=== PATIENT | female | born 1980 | race Caucasian/White ===

== ENCOUNTER 2019-11-17 10:44 | Outpatient (CLI) | payer OTHER, SELFPAY ==
--- NOTE | ~2019-11-17 | US_ITS ---
EXAMINATION: US OB <= 14 weeks fetus DATE: 11/17/2019 11:49 INDICATION: Threatened during late first trimester . TECHNIQUE: Real-time pelvic ultrasound utilizing transabdominal probe was performed. The saige elias radiologist was not present for the study. COMPARISON: 10/30/2019 and 10/25/2019 FINDINGS: The uterus measures 15.8 x 10.0 x 12.4 cm. There is an intrauterine gestational sac.There is a singl e fetus within the gestational sac in breech position. The crown rump length measures 6.4 cm, which i s concordant with previous estimated gestational age of 9 weeks and 5 days based upon earliest ultras ound performed at this institution on 10/25/2019. heart motion is identified measuring 165 beats per minute (bpm) by M-mode Doppler. Again seen is a diffusely hypoechoic fibroid in the posterior ut erine wall measuring 7.0 x 7.2 x 6.6 cm. No definitive subchorionic hematoma identified in the curren t study. The right ovary measures 2.2 x 1.7 x 1.6 cm. The left ovary measures 3.4 x 2.6 x 3.1 cm. Mass or flui d is identified at both ovaries on color Doppler. There is no free fluid in the pelvis. IMPRESSION: 1. Single living fetus with heart rate of 165 bpm. 2. Jillian rump length of 6.4 cm which is concordant with previously estimated gestational age by ultraso und of 9 weeks 5 day(s) with ultrasound estimated date of delivery (BIB) of 05/29/2020. 3. 7.2 cm uterine fibroid. Reviewed, dictated and finalized at location A. CE SERVICES MANAGER IMPRESSION: 1. Single living fetus with heart rate of 165 bpm. 2. Jillian rump length of 6.4 cm which is concordant with previously estimated gest ational age by ultrasound of 9 weeks 5 day(s) with ultrasound estimated date of delivery (BIB) of 05/29/2020. 3. 7.2 cm uterine fibroid.
== END 2019-11-17 10:45 | disposition home or self-care (01) ==
PROVIDERS: Visit Provider Student in an Organized Health Care Education/Training Program
DX: O20.0 Threatened abortion (principal); Z3A.00 Weeks of gestation of pregnancy not specified; D25.9 Leiomyoma of uterus, unspecified
CPT/HCPCS: 76801

== ENCOUNTER 2020-04-02 09:18 | Observation (INO) | payer OTHER, SELFPAY ==
[2020-04-02] VITALS (13 sets, daily range): BP systolic 118–133; BP diastolic 72–82; PULSE 88–98; BMI 37.0
[2020-04-02 10:18] LABS: Add Urine Microscopic? YES; Appearance Urine Clear (Clear); Bacteria Urine 2+ /hpf; Bilirubin Urine Negative (Negative); Blood Urine 1+ (Negative); Color Urine Yellow (Yellow); Glucose Urine UA Negative (Negative); Ketones Urine Negative (Negative); Leukocyte Esterase Ur Negative LEU/UL (NEGATIVE); Mucus Urine Rare /lpf; Nitrate Urine Negative (Negative); Protein Urine Negative (Negative); RBC Urine 0-2 /hpf (0-2); Specific Grav Ur 1.012 (1.001-1.035); Squamous Epithelial Cell Urine Occasional /hpf (Few); Urobilinogen Urine Negative mg/dL (<2.0)
[2020-04-02] MEDS: NIFEdipine 10 MG CAPSULE PO (11:40)
[2020-04-02] MEDS: TERBUTALINE SULFATE 1 MG/ML VIAL 0.25 MG SUB-Q (11:40)
== END 2020-04-02 14:10 | disposition home or self-care (01) ==
PROVIDERS: Admitting Provider Student in an Organized Health Care Education/Training Program; Visit Provider Student in an Organized Health Care Education/Training Program
DX: O60.00 Preterm labor without delivery, unspecified trimester (principal); Z3A.00 Weeks of gestation of pregnancy not specified
CPT/HCPCS: 81001; 87086; 96372; A9270; G0378; G0379; J3105

== ENCOUNTER 2020-05-05 13:39 | Observation (INO) | payer OTHER, SELFPAY ==
[2020-05-05 14:10] VITALS: BMI 37.9
--- NOTE | 2020-05-05 14:10 | OBADM ---
This patient, Ana Main, admitted to the OB room Labor/Delivery/Recovery 120 at 1339 for observation for contractions. Patient/family oriented to hospital policies and general routines including ID bracelet, bed and alarms, visiting hours, pain management, procedures, bathroom and other care routines, personal items, smoking policy, room service/diet, and visiting hours. Patient/Family are encouraged to report perceived risks to care and to ask questions if they do not understand what they are told or what they should do.
[2020-05-05 14:31] VITALS: BP 128/82; PULSE 96
[2020-05-05 15:01] VITALS: BP 122/67; PULSE 96
[2020-05-05 15:31] VITALS: BP 129/84; PULSE 88
[2020-05-05 15:32] LABS: Add Urine Microscopic? NO; Appearance Urine Clear (Clear); Bilirubin Urine Negative (Negative); Blood Urine Negative (Negative); Color Urine Yellow (Yellow); Glucose Urine UA Negative (Negative); Ketones Urine Negative (Negative); Leukocyte Esterase Ur Negative LEU/UL (Negative); Nitrate Urine Negative (Negative); Protein Urine Negative (Negative); Specific Grav Ur 1.015 (1.001-1.035); Urobilinogen Urine Negative mg/dL (<2.0)
[2020-05-05 16:00] VITALS: TEMP 36.6
[2020-05-05 16:01] VITALS: BP 123/85; PULSE 84
--- NOTE | 2020-05-09 13:01 | P.PNOB_ITS ---
OB - Triage/Final Diagnosis Evaluation Laboratory results: Laboratory Tests 05/05/20 15:17 Urine Color Yellow Urine Appearance Clear Urine pH 6.0 Ur Specific [place] 1.015 Urine Protein Negative Urine Glucose (UA) Negative Urine Ketones Negative Ur Blood (Man) Negative Urine Nitrate Negative Urine Bilirubin Negative Urine Urobilinogen Negative Leukocyte Esterase Rfl Negative Final Diagnosis (1) False labor: Code(s): O47.9 - False labor, unspecified Status: Acute
== END 2020-05-05 16:30 | disposition home or self-care (01) ==
PROVIDERS: Admitting Provider Obstetrics & Gynecology; Visit Provider Obstetrics & Gynecology
DX: O47.1 False labor at or after 37 completed weeks of gestation (principal); Z3A.37 37 weeks gestation of pregnancy
CPT/HCPCS: 81003; G0378; G0379

== ENCOUNTER 2020-05-08 08:36 | Observation (INO) | payer OTHER, SELFPAY ==
--- NOTE | 2020-05-08 08:36 | OBADM ---
This patient, Ana Main, admitted to the OB room OB Post 117 for observation. Patient/family oriented to hospital policies and general routines including ID bracelet, bed and alarms, visiting hours, pain management, procedures, bathroom and other care routines, personal items, smoking policy, room service/diet, and visiting hours. Patient/Family are encouraged to report perceived risks to care and to ask questions if they do not understand what they are told or what they should do.
[2020-05-08 09:00] VITALS: TEMP 36.7; BMI 37.9
[2020-05-08 09:15] VITALS: BP 127/84; PULSE 89
[2020-05-08 09:30] VITALS: BP 121/89; PULSE 100
[2020-05-08 09:45] VITALS: BP 130/87; PULSE 100
[2020-05-08] MEDS: DEXTROSE 5%/LACTATED RINGERS 1,000 ML 999 ML IV CONT (09:57)
[2020-05-08] MEDS: ONDANSETRON INJ 4 MG/2 ML VIAL IV PUSH (09:57)
[2020-05-08 10:00] VITALS: BP 127/82; PULSE 83
[2020-05-08] MEDS: LOPERAMIDE HCL 2 MG CAPSULE 4 MG PO (10:20)
--- NOTE | 2020-05-08 12:08 | PM.OBPNVD ---
OB - PN: Subj Subjective Date/time seen: 05/08/20 12:08 Called earlier by RN and notified of patient's arrival. Pt seen at bedside. Reported worsening of nausea yesterday and diarrhea overnight. Has experienced 11 episodes of watery stool this AM. Denies any vomiting, however, unable to tolerate much PO. States that she began to feel weak and thought she was becoming dehydrated. Reports cessation of contractions. Denies any vaginal bleeding or leakage of fluid. Reports good movement. On L&D, patient has received Zofran, Immodium, and IV hydration. Reports improvement of symptoms. Has tolerated small amount of PO fluid intake as well as crackers on L&D. Will continue to monitor for a little while longer. As long as symptoms do not worsen, patient will likely be d/c'd home. Will send Rx for Zofran to pharmacy. OB - PN A/P Time Spent With Patient Time: Total time spent is greater than 50% in coordination of care (as documented) at patient's floor/unit and/or counseling patient:
--- NOTE | 2020-05-08 12:17 | PC.NURSE ---
Called Dr. Diaz with pt status. Informed that pt is requesting to go home. Pt was able to eat crackers with minimal nausea. May D/C home.
[2020-05-08] MEDS: FAMOTIDINE 20 MG/2 ML VIAL IV PUSH (12:28)
== END 2020-05-08 12:40 | disposition home or self-care (01) ==
PROVIDERS: Admitting Provider Student in an Organized Health Care Education/Training Program; Visit Provider Student in an Organized Health Care Education/Training Program
DX: O21.9 Vomiting of pregnancy, unspecified (principal); Z3A.00 Weeks of gestation of pregnancy not specified
CPT/HCPCS: 96374; 96375; A9270; G0378; G0379; J2405; J7121

== ENCOUNTER 2020-05-15 12:22 | Outpatient (RCR) | payer OTHER, SELFPAY ==
[2020-04-26 11:10] VITALS: BP 118/80; PULSE 98
[2020-04-26 12:08] LABS: Hematocrit 36.5 % (37.0-47.0); Hemoglobin 11.9 g/dL (12.0-15.0); Mean Corpuscular HGB Conc 32.6 g/dl (32-36); Mean Corpuscular Hemoglobin 28.4 pg (26-34); Mean Corpuscular Volume 87.1 fl (80-100); Mean Platelet Volume 10.9 fl (7.4-10.4); Platelet Count Result 311 k/mm3 (150-375); Red Blood Count 4.19 M/mm3 (4.2-5.4); White Blood Count 14.6 K/mm3 (4.5-10.0)
[2020-04-26 13:00] LABS: HIV 1/2 Ab P24 Ag Result Negative (Negative)
[2020-04-27 06:57] LABS: Rapid Plasma Reagin Non-Reactive (NonReactive)
[2020-04-30 11:25] VITALS: BP 118/80; PULSE 98
[2020-05-03 12:46] VITALS: BP 130/85; PULSE 100
[2020-05-11 13:27] VITALS: BP 127/80; PULSE 97
--- NOTE | 2020-05-11 13:55 | PC.NURSE ---
BPP 05/19/
--- NOTE | ~2020-05-15 | US_ITS ---
US OB limited w BPP DATE: 04/26/2020 11:54 INDICATION: AMA TECHNIQUE: Real time imaging, color flow imaging, doppler analysis COMPARISON: 11/17/2019 obstetrical ultrasound FINDINGS: Live arevalo intrauterine gestation, fetus in longitudinal lie, vertex presentation. The placenta is posterofundal. Amniotic fluid index measures 17.3 cm. (5th percentile: 7.7 cm; 95th percentile: 24.9 cm). BIOPHYSICAL PROFILE reported by echocardiograph technician: breathin out of 2 movement: 2 out of 2 tone: 2 out of 2 Amniotic fluid pocket: 2 out of 2 Total score: 8 out of 8 IMPRESSION: Normal biophysical profile score of 8 out of 8 Reviewed, dictated and finalized at Location A. Reviewed, dictated and finalized at location A.
--- NOTE | ~2020-05-15 | US_ITS ---
EXAMINATION: US OB limited w BPP DATE: 05/11/2020 13:53 INDICATION: Advanced maternal age, third trimester TECHNIQUE: Real-time pelvic ultrasound was performed. The interpreting radiologist was not present fo r the study. COMPARISON: 04/26/2020 FINDINGS: There is a single living fetus in vertex presentation. The placenta is posterior. heart rate is 128 beats per minute (bpm). The amniotic fluid index is 18.6 cm which is normal. Biophysical profile performed by the technologist: breathing (30 sec sustained breathing in 30 minutes): 2 out of 2 movement (3 gross body movements in 30 minutes): 2 out of 2 tone (one episode of olovqhg-hsnqjomur-hifvsec limb movement): 2 out of 2 Amniotic fluid pocket (2 cm): 2 out of 2 Total score: 8 out of 8 IMPRESSION: 1. Single living fetus in vertex presentation. 2. Biophysical profile 8 out of 8. 3. Normal amniotic fluid index. Reviewed, dictated and finalized at location B.
[2020-05-15 12:47] VITALS: BP 137/84; PULSE 92
== END 2020-05-21 07:40 | disposition home or self-care (01) ==
LOC: ANHOBOP 12:22
PROVIDERS: Visit Provider Student in an Organized Health Care Education/Training Program
DX: O09.513 Supervision of elderly primigravida, third trimester (principal); Z11.4 Encounter for screening for human immunodeficiency virus [HIV]; Z3A.36 36 weeks gestation of pregnancy; Z3A.37 37 weeks gestation of pregnancy; Z3A.38 38 weeks gestation of pregnancy
CPT/HCPCS: 36415; 59025; 76815; 76819; 85027; 86592; 86703; G0432

== ENCOUNTER 2020-05-16 11:50 | Outpatient (CLI) | payer OTHER, SELFPAY ==
[2020-05-16 12:15] LABS: Hematocrit 36.1 % (37.0-47.0); Hemoglobin 11.9 g/dL (12.0-15.0); Mean Corpuscular Hemoglobin 28.5 pg (26-34); Mean Corpuscular Volume 86.4 fl (80-100); Mean Platelet Volume 11.3 fl (7.4-10.4); Platelet Count Result 306 k/mm3 (150-375); Red Blood Count 4.18 M/mm3 (4.2-5.4); Red Cell Distribution Width 17.3 % (11.5-14.5); White Blood Count 11.5 K/mm3 (4.5-10.0)
[2020-05-16 17:46] LABS: Alanine Aminotransferase 11 U/L (4-35); Alkaline Phosphatase 222 U/L (38-126); Anion Gap 9.6 mmol/L (7-16); Aspartate Amino Transferase 20 U/L (14-36); Bilirubin,Total 0.2 mg/dL (0.2-1.3); Blood Urea Nitrogen 10 mg/dL (7-17); Calcium 10.1 mg/dL (8.4-10.2); Carbon Dioxide 20 mmol/L (22-30); Chloride 107 mmol/L (98-107); Estimated Glomerular Filt Rate > 60; Glucose 234 mg/dL (65-105); Potassium 4.6 mmol/L (3.4-5.0); Sodium 132 mmol/L (137-145)
[2020-05-17 10:20] LABS: Rapid Plasma Reagin Non-Reactive (NonReactive)
[2020-05-22 15:41] LABS: Chenodeoxycholic Acid <0.5 umol/L (< OR = 3.9); Cholic Acid 0.7 umol/L (< OR = 2.8); Deoxycholic Acid 1.5 umol/L (< OR = 2.3); Total Bile Acids 2.2 umol/L (< OR = 8.3)
== END 2020-05-16 11:51 | disposition home or self-care (01) ==
PROVIDERS: Visit Provider Student in an Organized Health Care Education/Training Program
DX: Z34.93 Encounter for supervision of normal pregnancy, unspecified, third trimester (principal); Z3A.00 Weeks of gestation of pregnancy not specified
CPT/HCPCS: 36415; 80053; 82542; 85027; 86592; 86850; 86900; 86901

== ENCOUNTER 2020-05-17 05:20 | Inpatient (IN) | payer OTHER, SELFPAY ==
--- NOTE | 2020-05-15 13:20 | PC.NURSE ---
VERIFIED WITH OR SCHEDULE AND PATIENT--C/S ON 05/17/20 AT 0730 PATIENT GIVEN REQUISITION FOR PRE-OP LAB DRAW ON 05/16/20
[2020-05-17] VITALS (62 sets, daily range): BP systolic 95–131; BP diastolic 62–85; PULSE 64–114; RESP 11–16; TEMP 36.1–37.4; O2SAT 95–100; BMI 38.4
[2020-05-17] MEDS: LACTATED RINGERS 1,000 ML 999 ML IV CONT (06:16)
--- NOTE | 2020-05-17 06:43 | WPDANESEPPF ---
Anes - Initial Pre Proc Eval Procedure: Operation Date: 05/17/20 07:30 Proposed Procedures p Primary Section - Vida Diaz MD Date/Time: 05/17/20 06:43 Surgeon: Vida Diaz MD Pre Op Diagnosis: section Patient Data Age: 40 Gender: F Height: Weight: Last Vital Signs Pulse 114 H 05/17/20 05:46 BP 130/82 05/17/20 05:46 Pulse Ox 99 05/17/20 05:46 Allergies Allergy/AdvReac Type Severity Reaction Status Date / Time No Known Allergies Allergy Verified 05/15/20 11:39 Home Medications Medication Instructions Recorded Confirmed Type vit 123-iron 28 mg-folic 1 cap PO DAILY 10/20/19 05/05/20 History acid 800 [id number] 235 mg capsule acetaminophen [Tylenol Extra 1,000 mg PO Q6H PRN 2 Days #1 05/05/20 Rx Strength] tablet Patient hx anesthesia problems: none Family hx anesthesia problems: none PMFSH Past Medical History Medical History False labor Miscarriage x3 2008, 2002, 1996 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rent Cerebrovascular accident Father Diabetes mellitus Acute myocardial infarction Other Breast cancer Social History Social History Smoking status: Never smoker Substance use: never Gender identity (if verbalized by the patient): Female Spiritual care concerns: No Anes - Eval Final PreProcedure Day of Procedure 05/17/20 06:43 Patient weight: obese Heart: regular rate and rhythm Lungs: clear to auscultation Airway: Mallampati scale class II Neurological: alert and oriented Last oral intake: >/= 8 hours ASA classification: II Emergent: no Anesthetic plan: proceed Anesthesia type and monitoring: regional spinal and standard monitoring Informed Consent: The patient's anesthetic plan and its attendant risks and benefits were discussed with the patient/family/POA. Questions were solicited and answers provided to the satisfaction of the patient/family/POA.
--- NOTE | 2020-05-17 06:47 | PM.IMHP ---
H&P: HPI History of Present Illness Date/Time: 05/17/20 06:47 Chief complaint: section Narrative: Ana Main is a 40 year old female LMP 08/18/2019 currently 39 weeks gestation with estimated due date May 24, 2020. Patient presents for scheduled elective primary section at term. Patient has a history of previous molar status post D and C as well as to spontaneous miscarriages in the past. Current complicated by advanced maternal age, fibroid uterus requiring pain management at various stages throughout , abdominal and back pain, carpal tunnel syndrome, mild depressive symptoms, and an abnormal glucose challenge test followed by a normal glucose tolerance test. Patient has been extensively counseled and declines a trial of labor. She is requesting a primary section. She reports feeling well today. Denies any headache, chest pain, shortness of breath. Pruritus has improved. Denies any vaginal bleeding or leakage of fluid. Reports occasional contractions and good movement. Review of Systems Review of Systems: All systems reviewed & are unremarkable except as noted in HPI and below Constitutional: Constitutional: Reports as per HPI, Reports no additional constitutional complaints, Denies chills, Denies fever(s), Denies headache(s) and Denies night sweats Eyes: Eyes: Reports as per HPI and Reports no additional eye complaints ENT: Reports system reviewed and no additional complaints, except as documented, Reports as per HPI, Reports Normal hearing present and Denies headache(s) Cardiovascular: Cardiovascular: Reports as per HPI, Reports no additional cardiovascular complaints, Denies chest pain and Denies dyspnea Respiratory: Respiratory: Reports as per HPI, Reports no additional respiratory complaints, Denies cough and Denies dyspnea Gastrointestinal: Gastrointestinal: Reports as per HPI, Reports no additional gastrointestinal complaints, Denies abdominal pain, Denies change in bowel habits, Denies change in stool character, Denies nausea and Denies vomiting Genitourinary: Genitourinary: Reports no additional female genitourinary complaints, Reports as per HPI, Denies abnormal vaginal bleeding, Denies genital lesions, Denies hot flashes, Denies dyspareunia, Denies pelvic pain, Denies sexual dysfunction, Denies urinary incontinence, Denies vaginal discharge, Denies vaginal dryness and Denies vaginal odor Musculoskeletal: Musculoskeletal: Reports no additional musculoskeletal complaints and Reports as per HPI Integumentary/Breasts: Skin/Breast: Reports system reviewed and no additional complaints, except as docu, Reports as per HPI, Denies breast pain and Denies nipple discharge Neurologic: Reports system reviewed and no additional complaints, except as documented, Reports as per HPI, Reports Normal hearing present and Denies headache(s) Psychiatric: Psychiatric: Reports no additional psychiatric complaints, Reports as per HPI, Denies anxiety and Denies depression Endocrine: Endocrine: Reports no additional endocrine complaints and Reports as per HPI Hematologic/Lymphatic: Hematologic/Lymphatic: Reports no additional hematologic/lymphatic complaints and Reports as per HPI Allergic/Immunologic: Allergic/Immunologic: Reports no additional allergic/immunologic complaints and Reports as per HPI PMFSH Past Medical History Medical History False labor Miscarriage x3 2008, 2002, 1996 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
--- NOTE | 2020-05-17 06:47 | LDADM ---
This patient, Ana Main, was admitted to Labor/Delivery/Recovery 120 on 05/17/20 at 05:20. Plans for labor, pain management and were discussed with patient. Patient/family oriented to hospital policies and general routines including ID bracelet, bed and alarms, visiting hours, pain management, procedures, bathroom and other care routines, personal items, smoking policy, room service/diet and guest tray routines, security routines, and visiting hours. Patient/Family are encouraged to report perceived risks to care and to ask questions if they do not understand what they are told or what they should do. See OBIX for further documentation.
[2020-05-17] MEDS: LACTATED RINGERS 1,000 ML 125 ML IV CONT (06:48)
--- NOTE | 2020-05-17 07:29 | WPDHPUPDATE1 ---
History and Physical Update Update Date/Time: 05/17/20 07:29 History and Physical has been reviewed, including an updated exam of the patient. There are NO changes in the patient's condition. Risks, benefits, and alternatives have been discussed and questions answered. Patient agrees to proceed with procedure.
[2020-05-17] MEDS: KETOROLAC 30 MG/ML VIAL (*BKC) IV PUSH ×2 (08:20→15:25)
--- NOTE | 2020-05-17 08:58 | PM.PROC ---
Procedure Note - Detailed Date of procedure: 05/17/20 Pre-op diagnosis: section Intrauterine at 39w gestation History of fibroid uterus Advanced maternal age Post-op diagnosis: same Procedure performed: Primary low transverse via Pfannenstiel Description of procedure: The patient was taken the operating room was self transferred to operating room table. Spinal anesthesia was administered and found to be adequate. Patient was repositioned in the dorsal supine position with a leftward tilt. She was prepped and draped in the usual sterile fashion. Anesthesia was tested and found to be adequate. A Pfannenstiel skin incision was made and carried through to the underlying layer of fascia with Bovie. The fascia was incised in midline and the incision was extended laterally with the use of forceps and Yanes scissors. The inferior aspect of the fascial incision was grasped with Tasha clamps, elevated, and the underlying rectus muscle were dissected off with Yanes scissors. Attention was then turned to the superior aspect of the fascial incision which, in a similar manner, was grasped with Tasha clamps, elevated, and the underlying rectus muscles were also dissected off with Yanes scissors. The rectus muscle were in the midline and the peritoneum was grasped with Ritu clamps. The peritoneum was entered sharply with Metzenbaum scissors. This incision was extended inferiorly and superiorly with good visualization of the bladder and care was taken to avoid blood vessels. A bladder blade was inserted. The vesicouterine peritoneum was identified and grasped with forceps. It was incised with Metzenbaum scissors. This incision was extended laterally and a bladder flap was created digitally. The bladder blade was replaced. A low-transverse uterine incision was made with scalpel. Amniotomy was performed. Clear amniotic fluid was noted. The uterine incision was extended laterally with bandage scissors. Infant's head was grasped and guided to the level of the uterine incision and delivered atraumatically without difficulty. The 's neck, shoulders, and rest of body were also delivered without difficulty with gentle fundal pressure. 's nose and mouth were suctioned with bulb suction. Cord was clamped and cut and the infant was handed off to awaiting pediatric staff. A segment of cord was collected for cord gases. Cord blood was collected. The placenta was delivered spontaneously with gentle fundal pressure. Decision was made to leave the uterus in situ for closure. The uterus was cleared of all clots and debris. The uterine incision was reapproximated with 0 Vicryl in a running locked fashion. A 2nd imbricating layer using 0 Monocryl was performed. Excellent hemostasis was noted. Uterus was palpated and an approximately 5-6 cm soft fibroid was noted in the right fundal region. The rest of the uterus appeared smooth and normal. Fallopian tubes were visualized and appeared normal bilaterally. Ovaries were not seen. The gutters were cleared of all clots and debris. Hemaderm was applied across the uterine incision. Seprafilm was also applied across the uterine incision anterior surface of the uterus. The peritoneum was reapproximated with 2-0 Monocryl. The fascia was then closed with 0 Vicryl in a running fashion. The subcutaneous layer was irrigated and dried. Pinpoint areas of bleeding were made hemostatic with Bovie. The subcutaneous layer was reapproximated with 0 plain and the skin was closed with 4-0 Monocryl in a subcuticular fashion. The skin was cleansed and dried. Dermaflex skin adhesive was applied. A pressure dressing was also applied. The remainder of the patient was cleansed and dried. She was transported to the recovery room in stable condition. All sponge, lap, and instrument counts were correct at the end the procedure x3. Anesthesia: spinal Surgeon: Vida Diaz MD Bankruptcy Legal Assistant: Lo Lutz
[2020-05-17] MEDS: OXYTOCIN 30 UNITS/NS 500 ML 30 UNITS/500 ML BAG 125 UNITS IV CONT (09:15)
--- NOTE | 2020-05-17 09:16 | PM.OBPRVD ---
OB - Delivery Note Procedure Delivery date: 05/17/20 Procedure: Procedures Operation Date: 05/17/20 07:30 <No data on this case meets the specified criteria> Route of delivery: Specimen: Yes (placenta and cord) Estimated blood loss (mL): 500 Anesthesia type: Spinal Disposition: PACU Complications: No immediate complications Baby Date of : 05/17/20 Time of : 08:01 Weeks of gestation at delivery: 39 Infant gender: Female Weight (pounds): 7 Weight (ounces): 6 presentation: vertex Placenta delivery description: Spontaneous cord vessel description: 3 Vessels score one minute: 8 score five minutes: 9
[2020-05-17] MEDS: diphenhydrAMINE HCl INJ 50 MG/ML VIAL 25 MG IV PUSH (21:16)
[2020-05-17] MEDS: IBUPROFEN 600 MG TABLET PO (21:16)
[2020-05-18 04:30] VITALS: BP 112/64; PULSE 76; RESP 16; TEMP 36.7; O2SAT 97
[2020-05-18] MEDS: IBUPROFEN 600 MG TABLET PO ×3 (04:37→22:13)
[2020-05-18 05:29] LABS: Basophils Percent Auto 0.2 % (0.2-1.2); Eosinophils Absolute Auto 0.1 K/mm3 (0-0.3); Eosinophils Percent Auto 0.8 % (0-4.4); Hematocrit 30.7 % (37.0-47.0); Hemoglobin 9.9 g/dL (12.0-15.0); Immature Granulocyte Absolute 0.13 K/mm3 (0.00-0.031); Lymphocytes Absolute Auto 1.54 K/mm3 (0.9-3.2); Lymphocytes Percent Auto 11.6 % (18.3-44.2); Mean Corpuscular HGB Conc 32.2 g/dl (32-36); Mean Corpuscular Hemoglobin 28.4 pg (26-34); Mean Platelet Volume 11.4 fl (7.4-10.4); Monocytes Absolute Auto 1.1 K/mm3 (0.1-0.6); Neutrophils Absolute Auto 10.4 K/mm3 (1.3-6.7); Neutrophils Percent Auto 78.4 % (45.5-73.1); Platelet Count Result 263 k/mm3 (150-375); Red Blood Count 3.49 M/mm3 (4.2-5.4); Red Cell Distribution Width 17.3 % (11.5-14.5); White Blood Count 13.3 K/mm3 (4.5-10.0)
--- NOTE | 2020-05-18 07:48 | PM.OBPNVD ---
OB - PN: Subj Subjective Date/time seen: 05/18/20 07:48 Patient doing well. Reports minimal to moderate abdominal pain, reasonably controlled with medication. Denies any headache, chest pain, or shortness of breath. Reported mild nausea last night, however, resolved with rest and eating dinner. Denies any vomiting. [place] catheter removed this morning. Has voided. Ambulating well. Passing flatus. OB - PN: Obj Data Labs CBC & Chem 7: 05/18/20 04:45 Labs: Laboratory Results - last 24 hr 05/18/20 04:45 WBC 13.3 H RBC 3.49 L Hgb 9.9 L Hct 30.7 L MCV 88.0 MCH 28.4 MCHC 32.2 RDW 17.3 H Plt Count 263 MPV 11.4 H Immature Gran % (Auto) 1.0 H Neut % (Auto) 78.4 H Lymph % (Auto) 11.6 L [place] % (Auto) 8.0 Eos % (Auto) 0.8 Baso % (Auto) 0.2 Lymph # (Auto) 1.54 [place] # (Auto) 1.1 H Eos # (Auto) 0.1 Baso # (Auto) 0.0 Abs Immat Gran (auto) 0.13 H Absolute Neuts (auto) 10.4 H Absolute Nucleated RBC 0.0 Nucleated RBC % 0.0 OB - PN A/P Assessment and Plan (1) Delivery by section: Status: Acute Assessment and Plan: Continue routine postoperative care Encourage ambulation and use of IS Pain management PRN Time Spent With Patient Time: Total time spent is greater than 50% in coordination of care (as documented) at patient's floor/unit and/or counseling patient: Exam Const: General: comfortable and no acute distress GI: Inspection: non-distended GI Palp: Yes Soft to palpation and No Tenderness to palpation present (GI) Other: fundus below umbilicus inc covered with bandage c/d/i Extrem: Right lower extremity: edema (trace) Left lower extremity: edema (trace) Other: no calf tenderness
--- NOTE | 2020-05-18 07:49 | WPDANLDPN2 ---
Anes-Prog Note L&D Date/Time: 05/18/20 07:49 Comfortable throughout: section Neuraxial method: spinal Epidural/Spinal procedure site: clean & non-tender Neuro status: Neuro function grossly intact. Cardiovascular status: normal Respiratory status: normal Airway patency: baseline Mental status: baseline Post-Op hydration status: normal Vital Signs: Last Vital Signs Temp 36.7 C 05/18/20 04:30 Pulse 76 05/18/20 04:30 Resp 16 05/18/20 04:30 BP 112/64 05/18/20 04:30 Pulse Ox 97 05/18/20 04:30 I/O: Intake & Output 05/17/20 05/17/20 05/18/20 15:59 23:59 07:59 Intake Total 1100 1300 500 Output Total 1150 2500 1300 Balance -50 -1200 -800 Post-procedural complaints: none Patient feedback: Patient satisfied with anesthetic care.
--- NOTE | 2020-05-18 07:49 | WPDANLDNPN2 ---
Anes-Prog Note L&D-Neuraxial Date/Time: 05/18/20 07:49 Neuraxial medications: intrathecal PF morphine Opiod-related complaints: none Patient feedback: Patient satisfied with post-operative pain management.
[2020-05-18 07:50] VITALS: BP 124/74; PULSE 71; RESP 16; TEMP 36.4; O2SAT 98
[2020-05-18] MEDS: SIMETHICONE 80 MG TAB.CHEW PO ×4 (08:26→22:13)
[2020-05-18] MEDS: POLYSACCHARIDE IRON COMPLEX 150 MG CAPSULE PO (08:26)
[2020-05-18] MEDS: DOCUSATE SODIUM 100 MG CAPSULE PO (08:26)
[2020-05-18] MEDS: MULTIVIT/MIN/PREN/FOL AC/IRON TABLET 1 TAB PO (08:27)
[2020-05-18] MEDS: TETANUS,DIPHTHERIA,AC PERTUSSIS ADULT (0.5 ML) BOOSTRIX IM (15:16)
[2020-05-18 19:43] VITALS: BP 109/74; PULSE 88; RESP 18; TEMP 36.3; O2SAT 98
[2020-05-18 22:19] VITALS: BP 136/88; PULSE 98; RESP 18; O2SAT 98
[2020-05-19] MEDS: SIMETHICONE 80 MG TAB.CHEW PO ×5 (04:35→19:03)
[2020-05-19] MEDS: IBUPROFEN 600 MG TABLET PO ×3 (04:35→19:03)
[2020-05-19 08:11] VITALS: BP 122/83; PULSE 80; RESP 16; TEMP 36.6; O2SAT 99
[2020-05-19] MEDS: DOCUSATE SODIUM 100 MG CAPSULE PO ×2 (08:11→15:44)
[2020-05-19] MEDS: POLYSACCHARIDE IRON COMPLEX 150 MG CAPSULE PO ×2 (08:11→15:43)
--- NOTE | 2020-05-19 09:23 | PM.OBPNVD ---
OB - PN: Subj Subjective Date/time seen: 05/19/20 09:23 Patient doing well this AM. Reported getting behind on pain medication yesterday and had some difficulty catching back up. Feeling better this AM. Currently denies any headache, chest pain, SOB, N/V. Tolerating PO diet. Ambulating without difficulty. Voiding well. +flatus. Pt also reports generalized pruritus. OB - PN: Obj Data Labs CBC & Chem 7: 05/18/20 04:45 OB - PN A/P Assessment and Plan (1) Delivery by section: Status: Acute Assessment and Plan: Continue routine postoperative care Pain management PRN Encourage ambulation and use of IS Benadryl PRN pruritus Anticipate dc home tomorrow Time Spent With Patient Time: Total time spent is greater than 50% in coordination of care (as documented) at patient's floor/unit and/or counseling patient: Exam Const: General: comfortable and no acute distress GI: GI Palp: Yes Soft to palpation, Yes Tenderness to palpation present (GI) (appropriately tender) and No Guarding due to palpation present (GI) Other: fundus below umbilicus inc c/d/i Extrem: Right lower extremity: edema Details: 1+ Left lower extremity: edema Details: 1+ Other: no calf tenderness
[2020-05-19 19:05] VITALS: BP 122/73; PULSE 89; RESP 16; TEMP 36.7; O2SAT 99
[2020-05-20] MEDS: IBUPROFEN 600 MG TABLET PO ×2 (03:23→10:08)
[2020-05-20 06:42] VITALS: BP 123/87; PULSE 82; RESP 16; TEMP 36.6; O2SAT 95
[2020-05-20] MEDS: SIMETHICONE 80 MG TAB.CHEW PO ×3 (06:42→13:05)
[2020-05-20] MEDS: POLYSACCHARIDE IRON COMPLEX 150 MG CAPSULE PO (10:02)
[2020-05-20] MEDS: DOCUSATE SODIUM 100 MG CAPSULE PO (10:02)
[2020-05-20] MEDS: MEASLES,MUMPS,RUBELLA VACCINE 0.5 ML VIAL SUB-Q (10:03)
--- NOTE | 2020-05-20 11:03 | PC.NURSE ---
Patient viewed the discharge video Mother & Baby Care, The First Two Weeks . Patient was given the opportunity and encouraged to ask questions. Patient verbalized understanding of information shared and has been given the mother/baby guide for home reference.
--- NOTE | 2020-05-20 12:03 | PM.OBPNVD ---
OB - PN: Subj Subjective Date/time seen: 05/20/20 12:03 Patient doing well this AM. Reports adequate pain control with medication. Reports intermittent R shoulder discomfort, currently resolved. Denies any headache, chest pain, SOB, N/V. Tolerating PO diet. Ambulating well. Voiding without difficulty. +flatus. Pruritus resolved. OB - PN: Obj Data Labs CBC & Chem 7: 05/18/20 04:45 OB - PN A/P Assessment and Plan (1) Delivery by section: Status: Acute Assessment and Plan: Doing well Continue routine postoperative care Discharge home in stable condition f/u in office in 2 weeks for postoperative visit Time Spent With Patient Time: Total time spent is greater than 50% in coordination of care (as documented) at patient's floor/unit and/or counseling patient: Exam Const: General: comfortable and no acute distress GI: Inspection: non-distended GI Palp: Yes Soft to palpation and No Tenderness to palpation present (GI) Other: fundus below umbilicus Extrem: Right lower extremity: edema (trace) Left lower extremity: edema (trace) Other: no calf tenderness
--- NOTE | 2020-05-20 12:09 | P.DS_ITS ---
DS: Admitting Diagnosis Admitting Diagnosis Admitting Diagnosis: 39 weeks gestation of OB - DS: Summary OB Procedures : None OB Procedures Intrapartum: OB Procedures: : None Peripartum Data Procedures: Procedures Operation Date: 05/17/20 07:30 Actual Procedures Side Surgeon p Section Not Applicable Vida Diaz MD Time Spent with Patient Time attestation: Total time spent providing and/or coordinating discharge services: DS: Data Data Completed and Pending Pending studies at discharge: Pending at discharge 05/17/20 09:20 Surgical [PTH] Routine Discharge Plan Discharge Attending physician on discharge: Vida Diaz Discharging Clinician: Vida Diaz Anticipated Discharge Date/Time: 05/20/20 12:13 Patient Disposition: Home, Self-Care Activity: may drive after 2 weeks, as tolerated and pelvic rest Diet: regular Discharge Instructions: Call office ([phone]) to schedule the following appointments: 1. Postoperative/wound check in 2 weeks. 2. visit in 4-6 weeks. You may take Ibuprofen 600mg every 6 hours as needed for pain. I have sent a prescription for a stronger pain medication, [place], to your pharmacy. You may take this as prescribed for breakthrough pain (pain that is not controlled with Ibuprofen). No driving for at least two weeks. You also may not drive while taking narcotics. Pain medication may make you constipated. It may be helpful to take an [id number] stool softener, such as Colace and/or Senokot, along with the pain medication to help lessen constipation. Call office or go to ED for pain not controlled with medication, headache, chest pain, shortness of breath, fever, chills, persistent nausea or vomiting, severe abdominal pain, heavy vaginal bleeding >2 pads/hour, foul vaginal discharge or odor, any redness near incision, severe pain, pus or drainage from incision site, or problems with your breasts. Patient Instructions: Antibiotic Form Stand Alone Forms: General Discharge Information Follow-up/Referrals: Vida Diaz MD [Physician] - Discharge Medications: New hydrocodone-acetaminophen 5-325 mg Tablet 1 - 2 tablet PO Q4-6H PRN (Reason: Moderate Pain (4-6)) Qty: 30 RF: 0 Continued One-A-Day Women's 1 28 mg iron- 800 mcg-235 mg capsule 1 cap PO DAILY RF: 0 Discontinued acetaminophen [Tylenol Extra Strength] 500 mg Tablet 1,000 mg PO Q6H PRN (Reason: Pain) 2 Days Qty: 1 RF: 0 Date of admission: 05/17/20 05:20 Primary Care Provider: PHYSICIAN,EMBEDDED SOFTWARE PROGRAMMER Admitting Provider: Vida Diaz Attending physician on admission: Vida Diaz Condition: Stable
[2020-05-21 09:14] VITALS: BP 126/82; PULSE 82; RESP 20; TEMP 36.7; O2SAT 98
== END 2020-05-20 13:40 | disposition home or self-care (01) | DRG 787 ==
LOC: ANHLDR 05:23 → ANHOB2 11:22
PROVIDERS: Admitting Provider Student in an Organized Health Care Education/Training Program; Visit Provider Student in an Organized Health Care Education/Training Program
PROC: 10D00Z1 Extraction of Products of Conception, Low, Open Approach (ICD-10-PCS; CPT 59514; principal; 2020-05-17 07:30)
DX: O99.89 Other specified diseases and conditions complicating pregnancy, childbirth and the puerperium (principal); O99.354 Diseases of the nervous system complicating childbirth; Z37.0 Single live birth; Z3A.39 39 weeks gestation of pregnancy; Z87.59 Personal history of other complications of pregnancy, childbirth and the puerperium; O34.13 Maternal care for benign tumor of corpus uteri, third trimester; D25.9 Leiomyoma of uterus, unspecified; O99.810 Abnormal glucose complicating pregnancy; G56.03 Carpal tunnel syndrome, bilateral upper limbs; O99.214 Obesity complicating childbirth; E66.9 Obesity, unspecified; O99.343 Other mental disorders complicating pregnancy, third trimester; F32.9 Major depressive disorder, single episode, unspecified; O26.893 Other specified pregnancy related conditions, third trimester; L29.9 Pruritus, unspecified
CPT/HCPCS: 36415; 85025; 88307; 90710; 90715; A9270; C1765; J0131; J1200; J1885; J2274; J2370; J2405; J2590; J3010; J7120

== ENCOUNTER 2021-03-21 10:07 | Outpatient (CLI) | payer OTHER, SELFPAY ==
--- NOTE | ~2021-03-21 | US_ITS ---
EXAMINATION: US pelvic complete w TV DATE: 03/21/2021 10:47 INDICATION: IUD strings not visualized. Comparison:Ultrasound dated TECHNIQUE: Multiple transabdominal and endovaginal sonographic images of the pelvis performed. FINDINGS: The uterus measures 12.8 x 7.9 x 6.6 cm. There are multiple uterine fibroids some of which appear calcified, largest measuring 4 cm. There is an echogenic structure in the endometrium which li barbie corresponds to the IUD, although somewhat obscured by fibroid changes. The endometrial complex m easures 6 mm. The right ovary measures 3.4 x 3.1 x 1.9 cm and the left ovary measures 3.1 x 1.9 x 2 cm. There are small follicles in each ovary. Normal doppler signal in both ovaries. There is no free fluid in the pelvis. There are no abnormal masses seen on either side. IMPRESSION: 1. Enlarged fibroid uterus. 2: Echogenic structure in the endometrium likely represents the IUD, although obscured by overlying fibroid changes. Reviewed, dictated and finalized at location B.
== END 2021-03-21 10:08 | disposition home or self-care (01) ==
PROVIDERS: Visit Provider Obstetrics & Gynecology
DX: Z30.431 Encounter for routine checking of intrauterine contraceptive device (principal); D25.9 Leiomyoma of uterus, unspecified
CPT/HCPCS: 76830; 76856

== ENCOUNTER 2022-10-21 12:35 | Outpatient (CLI) | payer OTHER, SELFPAY ==
--- NOTE | ~2022-10-21 | US_ITS ---
EXAMINATION: US pelvic complete w TV DATE: 10/21/2022 13:46 INDICATION: Excessive and frequent menstruation TECHNIQUE: Multiple transabdominal and endovaginal sonographic images of the pelvis were obtained. COMPARISON: 03/21/2021 FINDINGS: The uterus measures 10.7 x 6.0 x 6.8 cm there is a 2.6 cm intramural fibroid of the posteri or uterine body. There is a 4.2 cm subserosal fibroid seen posteriorly involving the lower uterine se gment/upper cervix. The endometrial complex measures 12 mm. The left ovary is not visualized however no left adnexal abnormality is seen. The right ovary measures 3.9 x 2.3 x 2.5 cm. There is normal vas cular flow in the right ovary. There is no free fluid in the pelvis. IMPRESSION: 1. No sonographic correlate for the patient's symptoms. 2. Uterine fibroids. Reviewed, dictated and finalized at location L. PRESIDENT DIGITAL STRATEGIST
== END 2022-10-21 12:36 | disposition home or self-care (01) ==
PROVIDERS: Visit Provider Student in an Organized Health Care Education/Training Program
DX: N92.0 Excessive and frequent menstruation with regular cycle (principal); D25.9 Leiomyoma of uterus, unspecified
CPT/HCPCS: 76830; 76856

== ENCOUNTER 2023-03-06 08:48 | Outpatient (CLI) | payer OTHER, SELFPAY ==
[2023-03-06 09:20] LABS: Basophils Percent Auto 0.7 % (0.2-1.2); Eosinophils Absolute Auto 0.1 K/mm3 (0-0.3); Eosinophils Percent Auto 1.8 % (0-4.4); Hematocrit 42.8 % (37.0-47.0); Hemoglobin 14.3 g/dL (12.0-15.0); Immature Granulocyte Absolute 0.01 K/mm3 (0.00-0.031); Immature Granulocyte Percent A 0.2 % (0-0.5); Lymphocytes Absolute Auto 1.98 K/mm3 (0.9-3.2); Lymphocytes Percent Auto 35.8 % (18.3-44.2); Mean Corpuscular HGB Conc 33.4 g/dl (32-36); Mean Corpuscular Hemoglobin 31.6 pg (26-34); Mean Corpuscular Volume 94.5 fl (80-100); Monocytes Absolute Auto 0.5 K/mm3 (0.1-0.6); Monocytes Percent Auto 8.7 % (2.6-8.5); Neutrophils Absolute Auto 2.9 K/mm3 (1.3-6.7); Neutrophils Percent Auto 52.8 % (45.5-73.1); Platelet Count Result 294 k/mm3 (150-375); Red Blood Count 4.53 M/mm3 (4.2-5.4); Red Cell Distribution Width 12.3 % (11.5-14.5); White Blood Count 5.5 K/mm3 (4.5-10.0)
[2023-03-06 09:35] LABS: Hemoglobin A1C 4.9 % (<5.7)
[2023-03-06 09:39] LABS: Alanine Aminotransferase 28 U/L (6-35); Albumin Level 4.6 g/dL (3.5-5.1); Alkaline Phosphatase 88 U/L (38-126); Anion Gap 6 mmol/L (8-16); Aspartate Amino Transferase 24 U/L (14-36); Bilirubin,Total 0.5 mg/dL (0.2-1.3); Blood Urea Nitrogen 15 mg/dL (7-17); Calcium 9.9 mg/dL (8.4-10.2); Carbon Dioxide 29 mmol/L (22-30); Chloride 104 mmol/L (98-107); Cholesterol 242 mg/dL (0-200); Estimated Glomerular Filt Rate > 60; Glucose 92 mg/dL (65-110); HDL Direct 46 mg/dL; Potassium 4.2 mmol/L (3.4-5.0); Sodium 139 mmol/L (137-145); Triglycerides 175 mg/dL (<150)
[2023-03-06 09:52] LABS: LDL Cholesterol Direct 138 mg/dL
[2023-03-06 10:11] LABS: Ferritin 9.86 ng/mL (6.24-137)
== END 2023-03-06 08:49 | disposition home or self-care (01) ==
PROVIDERS: PCP Family Medicine; Visit Provider Family Medicine
DX: R53.83 Other fatigue (principal); N92.0 Excessive and frequent menstruation with regular cycle; E66.9 Obesity, unspecified
CPT/HCPCS: 36415; 80053; 80061; 82607; 82728; 83036; 84443; 85025

== ENCOUNTER 2024-08-01 04:52 | Emergency (ER) | payer OTHER, SELFPAY ==
--- NOTE | ~2024-08-01 | CT_ITS ---
CT of the Abdomen and Pelvis: Indication: Abdominal pain Technique: 2.5 mm axial scans were obtained through the abdomen and pelvis following intravenous adm inistration of 100 cc of Omnipaque 350. Dose reduction technique was used on this scan by utilizing a utomated exposure control and iterative reconstruction technique. The dose-length product (DLP) was 6 53.20 mGy-cm. Findings: Scans through the lung bases are unremarkable. The liver, spleen, pancreas, gallbladder, adrenals and kidneys are within normal limits. No evidence of aortic aneurysm. No lymphadenopathy. No bowel obstruction or bowel wall thickening. There is no evidence to suggest acute appendicitis. Images through the pelvis were performed. Urinary bladder unremarkable. No pelvic mass seen. No ascit es. Impression: No significant abnormalities seen. Reviewed, dictated and finalized at location . Impression: No significant abnormalities seen.
[2024-08-01 04:55] VITALS: BP 123/87; PULSE 91; RESP 20; TEMP 36.3; O2SAT 100
[2024-08-01 05:16] LABS: BEDSIDEPREGUCG Negative (Negative)
[2024-08-01 05:22] LABS: Basophils Percent Auto 0.3 % (0.2-1.2); Eosinophils Absolute Auto 0.1 K/mm3 (0-0.3); Eosinophils Percent Auto 0.4 % (0-4.4); Hematocrit 47.6 % (37.0-47.0); Hemoglobin 16.6 g/dL (12.0-15.0); Immature Granulocyte Absolute 0.06 K/mm3 (0.00-0.031); Immature Granulocyte Percent A 0.4 % (0-0.5); Lymphocytes Absolute Auto 1.72 K/mm3 (0.9-3.2); Lymphocytes Percent Auto 10.9 % (18.3-44.2); Mean Corpuscular HGB Conc 34.9 g/dl (32-36); Mean Corpuscular Hemoglobin 32.5 pg (26-34); Mean Corpuscular Volume 93.3 fl (80-100); Mean Platelet Volume 10.3 fl (7.4-10.4); Monocytes Absolute Auto 0.6 K/mm3 (0.1-0.6); Monocytes Percent Auto 3.9 % (2.6-8.5); Neutrophils Absolute Auto 13.2 K/mm3 (1.3-6.7); Neutrophils Percent Auto 84.1 % (45.5-73.1); Platelet Count Result 316 k/mm3 (150-375); Red Cell Distribution Width 12.2 % (11.5-14.5); White Blood Count 15.7 K/mm3 (4.5-10.0)
[2024-08-01 05:35] LABS: Alanine Aminotransferase 28 U/L (6-35); Albumin Level 4.8 g/dL (3.5-5.1); Alkaline Phosphatase 102 U/L (38-126); Anion Gap 7 mmol/L (4-12); Aspartate Amino Transferase 38 U/L (14-36); Bilirubin,Total 0.7 mg/dL (0.2-1.3); Blood Urea Nitrogen 11 mg/dL (7-17); Calcium 10.5 mg/dL (8.4-10.2); Carbon Dioxide 28 mmol/L (22-30); Chloride 103 mmol/L (98-107); Estimated CRCL calculation 98 ml/min; Estimated Glomerular Filt Rate > 60; Glucose 147 mg/dL (65-110); Lipase 89 U/L (23-300); Potassium 3.3 mmol/L (3.4-5.0); Sodium 138 mmol/L (137-145)
[2024-08-01 05:39] LABS: Add Urine Microscopic? YES; Appearance Urine Cloudy (Clear); Bacteria Urine 3+ /hpf; Bilirubin Urine Negative (Negative); Blood Urine Non-Hemolyzed Trace (Negative); Calcium Oxalate Crystals Urine Present /hpf; Color Urine Yellow (Yellow); Glucose Urine UA Negative (Negative); Ketones Urine 1+ mg/dL (Negative); Leukocyte Esterase Ur Negative LEU/UL (Negative); Need Manual Microscopic Reviewed; Nitrate Urine Negative (Negative); Protein Urine Negative (Negative); Specific Grav Ur 1.016 (1.001-1.035); Squamous Epithelial Cell Urine Occasional /hpf (Few); pH Urine 5.5 (5.0-9.0)
--- NOTE | 2024-08-01 06:23 | ED.ABDPAIN ---
HPI - Abdominal Pain General Chief Complaint: Abdominal Pain Stated Complaint: Abd pain, n/v Time Seen by Provider: 08/01/24 04:56 History of Present Illness HPI narrative: Patient is a 44-year-old female who presents to the emergency department this morning complaining of generalized abdominal pain. Patient states that she has been having some constipation and decided to take some oxygen pill which helps her with constipation and went to sleep and then woke up around 3:00 a.m. with sharp abdominal pain. Patient states that she went to the bathroom to have a bowel which made her lightheaded. Patient did have a full normal bowel movement. Patient admits that she has used these oxygen pills before after she had surgery and it helped her have a bowel movement and did not cause similar pain. Patient states the pain has somewhat resolved since she she arrived to the emergency department but admits that she still has the pain. Patient admits that she had 1 vomiting episode prior to arrival to the emergency department. Denies any current nausea, denies any dysuria or hematuria. No additional symptoms or concerns at this time. Related Data Home Medications Medication Instructions Recorded Confirmed multivitamin (Daily Multi-Vitamin 1 tablet PO DAILY 03/07/21 05/13/23 tablet) Allergies Allergy/AdvReac Type Severity Reaction Status Date / Time estradiol AdvReac Severe Headache Verified 05/13/23 14:10 Review of Systems Review of Systems: All systems are reviewed and are negative unless stated otherwise in the HPI. 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, the other 2 occurred at home before she could be seen by a physician) Surgical History Surgical History Delivery by section H/O dilation and curettage 1996 H/O eye surgery 1989 H/O total vaginal hysterectomy (~03/2023) fibroids,menorrhagia History of bilateral salpingectomy History of section Family History Family History Mother Hypertension Grandparent Cerebrovascular accident Father Diabetes mellitus Acute myocardial infarction Other Breast cancer Social History Social History Smoking status: Never smoker Alcohol intake: never Alcohol use details: drinks occasionally Substance use: never Substance use type: does not use Lack of Transportation: No Lack of Food: Never True Current Housing: I Have Housing Concerned About Future Housing: No Difficulty Paying Gas/Electric Bills: No Difficulty Paying for Meds: No Currently Unemployed: No Education: Associate Degree Difficulty w/ Childcare or Family Care: No Living arrangements: with family Occupation/Education: occupation Gender identity (if verbalized by the patient): Female Spiritual care concerns: No Agree to blood products: Yes Exam Narrative: General: Alert, awake, afebrile, in no acute distress. HEENT: PERRL, no rhinorrhea, no post nasal drip, oropharynx clear. Cardiovascular: Regular rate and rhythm, no murmurs, rubs or gallops, no peripheral edema. Respiratory: Clear to auscultation bilaterally, no tachypnea, no wheezing, no rhonchi, no rubs, no respiratory distress. Abdomen: Soft, nontender, nondistended, no rebound, no guarding, no peritoneal signs. Musculoskeletal: No joint swelling or deformity, normal muscle tone. Skin: No rashes or petechia, no signs of infection. Neurological: Alert and oriented to person, place, and time. Follows all commands. No focal deficits, speech is clear and fluent. Course Vital Signs Vital signs: Vital Signs Temperature 97.4 F L 08/01/24 04:55 Pulse Rate 91 08/01/24 04:55 R
[2024-08-01] MEDS: SODIUM CHLORIDE 0.9% IV 1,000 ML 999 ML IV CONT (06:28)
[2024-08-01 07:00] VITALS: BP 122/64; PULSE 71; RESP 15; O2SAT 100
== END 2024-08-01 07:01 | disposition home or self-care (01) ==
PROVIDERS: Emergency Provider Emergency Medicine; PCP Family Medicine
DX: N39.0 Urinary tract infection, site not specified (principal); R10.84 Generalized abdominal pain
CPT/HCPCS: 36415; 74177; 80053; 81001; 81025; 83690; 85025; 87086; 96360; 99284; J7030; Q9967

== ENCOUNTER 2024-09-11 15:36 | Emergency (ER) | payer OTHER, SELFPAY ==
--- NOTE | 2024-09-11 15:41 | ED_ITS ---
HPI - Abdominal Pain General Chief Complaint: Nausea/Vomiting/Diarrhea Stated Complaint: STOMACH PAIN/DIARRHEA/VOMITING Time Seen by Provider: 09/11/24 15:41 Source: patient Mode of arrival: ambulatory Limitations: no limitations History of Present Illness HPI narrative: Ana is a 44-year-old female patient presenting to the clinic today with complaints of abdominal discomfort, dizziness, lightheaded, nausea, diarrhea, and vomiting. She reports symptoms started around 1:00 a.m. this morning. Has had multiple emesis and diarrhea episodes today. She was taking Mounjaro for weight loss and they switched her to Wegovy on and she thinks they increased her dose. She denies any shortness of breath or chest pain. Related Data Home Medications Medication Instructions Recorded Confirmed multivitamin (Daily Multi-Vitamin 1 tablet PO DAILY 03/07/21 08/02/24 tablet) Allergies Allergy/AdvReac Type Severity Reaction Status Date / Time estradiol AdvReac Severe Headache Verified 08/02/24 09:57 Review of Systems Review of Systems: Pertinent positives per HPI. Patient denies any fever, chills, rash, headache, visual changes, cough, runny nose, sore throat, shortness of breath, chest pain, palpitations, constipation, or any urinary issues. 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, the other 2 occurred at home before she could be seen by a physician) Surgical History Surgical History Delivery by section H/O dilation and curettage 1996 H/O eye surgery 1989 H/O total vaginal hysterectomy (~03/2023) fibroids,menorrhagia History of bilateral salpingectomy History of section Family History Family History Mother Hypertension Grandparent Cerebrovascular accident Father Diabetes mellitus Acute myocardial infarction Other Breast cancer Social History Social History Smoking status: Never smoker Alcohol intake: never Alcohol use details: drinks occasionally Substance use: never Substance use type: does not use Lack of Transportation: No Lack of Food: Never True Current Housing: I Have Housing Concerned About Future Housing: No Difficulty Paying Gas/Electric Bills: No Difficulty Paying for Meds: No Currently Unemployed: No Education: Associate Degree Difficulty w/ Childcare or Family Care: No Living arrangements: with family Occupation/Education: occupation Gender identity (if verbalized by the patient): Female Spiritual care concerns: No Agree to blood products: Yes Comments At the time of my signature, I reviewed and agree with the nursing past medical, surgical, social, and family history. There is no relevant family history pertinent to the patient complaint. Exam Narrative: General: Well-developed, well nourished, acute ill-appearing Head: Normocephalic, atraumatic. Cardio: Regular rate and rhythm, s1 and s2 normal, no murmur appreciated. Resp: Clear to auscultation bilaterally, no rhonchi, rales, wheezing or rubs. Abdomen: Soft, pliable, bowel sounds present in all quadrants, generalized tender to palpation, no organomegly, no CVAT tenderness. Course Course Emergency Course: Portions of this record may have been created with voice recognition software. Level of Care: Express Care Visit Vital Signs Vital signs: Vital signs reviewed Transfer Transfered to: [facility] Transportation: Other (private car) Transfer rationale: N/V/D abdomen pain, dizziness, near syncope Accepting physician: Leon Transfer comments: Patient declined EMS- will drive to the ER MDM - Abdominal Pain MDM Narrative Medical decision making narrative: At the time of visit patient is resting comfortably on the exam table. Patient appears to be acutely ill and dehydrated Plan: Recommend transfer to the ER for further evaluation. Patient would like to be transfer to [facility]. Contacted Leon at [facility] and she accepts patient for transfer. Patient declined EMS like her to transfer her to the ER. Differential Diagnosis Differential diagnosis: Likely abdominal pain, acute appendicitis, calculus of kidney, constipation, diverticulitis, gastroenteritis, pancreatitis, small bowel obstruction and other (Adverse effect of medication, dehydration) Discharge Plan Discharge Clinical Impression: Acute nausea with nonbilious vomiting, Acute dehydration, Dizziness, Near syncope Diarrhea Qualifiers: Diarrhea type: unspecified type Qualified Code(s): R19.7 - Diarrhea, unspec ified Abdominal pain Qualifiers: Abdominal location: unspecified location Qualified Code(s): R10.9 - Unspecified abdominal pain Patient Disposition: Acute Care Hospital Condition: Guarded Prognosis Prescriptions: No Action multivitamin [Daily Multi-Vitamin] Tablet 1 tablet PO DAILY cephalexin 500 mg capsule 500 mg PO Q12H 7 Days Qty: 14 0RF Follow-up/Referrals: Wendy Diaz MD [Primary Care Provider] - Time of Disposition: 15:56 Quality NIHSS Nursing Documentation ED NIHSS nursing documentation: reviewed/agree
[2024-09-11 15:46] VITALS: BP 123/86; PULSE 100; RESP 16; TEMP 36.1; O2SAT 98
== END 2024-09-11 16:10 | disposition short-term general hospital (02) ==
PROVIDERS: Emergency Provider Nurse Practitioner Family; PCP Family Medicine
DX: R11.2 Nausea with vomiting, unspecified (principal); E86.0 Dehydration; R42 Dizziness and giddiness; R55 Syncope and collapse; R19.7 Diarrhea, unspecified; R10.9 Unspecified abdominal pain
CPT/HCPCS: 99212; G0463

== ENCOUNTER 2024-09-11 16:13 | Emergency (ER) | payer OTHER, SELFPAY ==
[2024-09-11 16:17] VITALS: BP 124/86; PULSE 112; RESP 18; TEMP 36.1; O2SAT 100
--- NOTE | 2024-09-11 19:47 | PC.NURSE ---
Patient called for twice once at 1914 and another at 1944. No answer either time
== END 2024-09-11 20:23 | disposition left against medical advice (07) ==
PROVIDERS: PCP Family Medicine
DX: R11.2 Nausea with vomiting, unspecified (principal)
CPT/HCPCS: 99199